=== PATIENT | male | born 2000 ===

== ENCOUNTER 2023-11-04 02:17 | Emergency (ER) | payer OTHER, SELFPAY ==
[2023-11-04 02:45] VITALS: BP 125/77; PULSE 60; RESP 16; TEMP 36.5; O2SAT 98; BMI 24.8
--- OUTSIDE RECORDS SUMMARY | 2023-11-04 03:01 | XMS_ITS | Continuity of Care Document ---
Author Organization [facility] Address [address] [place] [address]- Care Team Providers Care Auto Suspension And Steering Mechanic Name Role Phone Laure Vazquez MD Primary Care Physician [place] [facility] 04/27[place]20 - 05/04/20 [facility] [address] [place] [address]- [facility] Encounter Diagnosis Migraine(Discharge Diagnosis) - 04/27/20 Dizziness(Discharge Diagnosis) - 04/27/20 Attending Physician: Violette Adhikari MD Allergies, Adverse Reactions, Alerts Substance Reaction Severity Status Latex Active Immunizations Given and Recorded Vaccine Date Status Refusal Reason tetanus/diphtheria/pertussis, acel(Tdap) 1 07/24/19 Given Measles/Mumps/Rubella Virus Vaccine 08/08/17 Recor ded Hepatitis B Vaccine (old term) 08/08/17 Recorded 1Result Comment: [facility]# [id number] Medications ProAir HFA 90 mcg/inh inhalation aerosol with adapter 2, puffs, Inhalation, Every 4 hours, PRN, # 1 each, Refills 0, Tot. Refills 0, Maintenance, 06/30/19 14:56:25 EST, Aerosol, Route to Pharmacy Electronically, [id number], [facility]/pharmacy #[id number], 188, cm, 05/14/19 14:00:18 EDT, Height Start Date: 06/30/19 Stop Date: 07/30/19 Status: Ordered SUMAtriptan 25 mg oral tablet 1 tablet = 25 mg, By Mouth, Daily, PRN for migraine headache, may repeat dose after 2 hours up to amaximum of 2, # 9 tablet, 0 Refills, Acute 05/28/20 15:34:00 EST, 04/27/20 15:33:00 EDT, Tablet, [id number], 188, cm, 02/11/20 10:27:00 EDT, He... Start Date: 04/27/20 Stop Date: 05/28/20 Status: Ordered Problem List Condition Effective Dates Status Health Status Inform ant Hematuria(Confirmed) Active OCD (obsessive compulsive disorder)(Confirmed) Active Diagnosis Diagnosis Type Effective Dates Health Status Clini eder Service Informant Migraine Discharge Diagnosis 04/27/20 Dizziness Discharge Diagnosis 04/27/20 Social History Social History Type Response Smoking Status Never smoker; Tobacc o user in household: No entered on: 03/07/16 Sex
--- OUTSIDE RECORDS SUMMARY | 2023-11-04 03:01 | XMS_ITS | Continuity of Care Document ---
Author Organization [facility] Address [address] [place] [address]- Care Team Providers Care Outside Solar Sales Consultant Name Role Phone Cj Broderick MD Primary Care Physician [phone] Encounter [facility] Date(s): 02/25/23 - 03/28/23 [facility] [address] [place], [place] [address] Attending Physician: Cj Broderick MD Allergies, Adverse Reactions, Alerts Substance Reaction Severity Status Latex Active Immunizations Given and Recorded Vaccine Date Status Refusal Reason SARS-CoV-2 (COVID-19) mRNA BNT-162b2 vac 04/14/21 Recorded SARS-CoV-2 (COVID-19) mRNA BNT-162b2 vac 03/23/21 Recorded influenza virus vaccine, live 05/05/20 Recorded tetanus/diphtheria/pertussis, acel(Tdap) 1 07/24/19 Given Measles/Mumps/Rubella Virus Vaccine 08/08/17 Recor ded Hepatitis B Vaccine (old term) 08/08/17 Recorded 1Result Comment: [facility]# [id number] Medications SUMAtriptan 25 mg oral tablet 1 tablet = 25 mg, By Mouth, Once, # 9 tablet, 0 Refills, Soft Stop, 08/10/21 16:48:00 EST, Partial fill upon patient request if the prescription is for a schedule II opioid drug. Start Date: 08/10/21 Status: Ordered Ventolin HFA 108 mcg/inh inhalation aerosol with adapter 2 puffs, Inhalation, Every 4 hours, PRN for wheezing, # 18 Gm, 1 Refills, Maintenance, 06/05/22 23:15:00 EST, Aerosol, [id number], Partial fill upon patient request if the prescription is fora schedule II opioid drug., 180, cm, 05/07/22 16:00... Start Date: 06/05/22 Status: Ordered Problem List Condition Confirmation Course Effective Dates Status Health St atus Informant Asthma Confirmed Active Hematuria Confirmed Active Migraine Confirmed Active OCD (obsessive compulsive disorder) Confirmed Active Social History Social History Type Response Smoking Status Never smoker; Tobacc o user in household: No entered on: 03/07/16 Sex Patient Care team information Care Team Personnel Name: Cj Broderick MD Position: [facility] Physician - Primary Care Member Role: PCP Address: Address: [address] [place] [address] Adult & [place] [address]- Care Team Related Persons Name: EBEN MCGEE Address: home [address] [place] [address] Name: JACQUELINE MCGEE Address: home [address] [place] [address] Name: MOI SANCHEZ Address: home [address] [facility] [address] [place] [address]
--- OUTSIDE RECORDS SUMMARY | 2023-11-04 03:01 | XMS_ITS | Continuity of Care Document ---
Author Organization [facility] Address [address] [place] [address]- Care Team Providers Care Environmental Health Safety Engineer Name Role Phone Cj Broderick MD Primary Care Physician [phone] Encounter [facility] Date(s): 08/10/21 - 09/09/21 [facility] [address] [place], [place] [address] Allergies, Adverse Reactions, Alerts Substance Reaction Severity Status Latex Active Immunizations Given and Recorded Vaccine Date Status Refusal Reason SARS-CoV-2 (COVID-19) mRNA BNT-162b2 vac 04/14/21 Recorded SARS-CoV-2 (COVID-19) mRNA BNT-162b2 vac 03/23/21 Recorded influenza virus vaccine, live 05/05/20 Recorded tetanus/diphtheria/pertussis, acel(Tdap) 1 07/24/19 Given Measles/Mumps/Rubella Virus Vaccine 08/08/17 Recor ded Hepatitis B Vaccine (old term) 08/08/17 Recorded 1Result Comment: [facility]# [id number] Medications SUMAtriptan 25 mg oral tablet 1 tablet = 25 mg, By Mouth, Once, # 9 tablet, 0 Refills, Soft Stop, 08/10/21 16:48:00 EST, Partial fill upon patient request if the prescription is for a schedule II opioid drug. Start Date: 08/10/21 Status: Ordered Problem List Condition Effective Dates Status Health Status Inform ant Asthma(Confirmed) Active Hematuria(Confirmed) Active Migraine(Confirmed) Active OCD (obsessive compulsive disorder)(Confirmed) Active Social History Social History Type Response Smoking Status Never smoker; Tobacc o user in household: No entered on: 03/07/16 Sex
--- OUTSIDE RECORDS SUMMARY | 2023-11-04 03:01 | XMS_ITS | Continuity of Care Document ---
Author Organization [facility] Address [address] [place] [address]- Care Team Providers Care Physician Neonatology Name Role Phone Davie CASILLAS, Cj Toledo Primary Care Physician Encounter [facility] Date(s): 05/16/23 - 06/15/23 [facility] [address] [place], [place] [address] Allergies, Adverse Reactions, Alerts Substance Reaction Severity Status Latex Active Immunizations Given and Recorded Vaccine Date Status Refusal Reason SARS-CoV-2 (COVID-19) mRNA BNT-162b2 vac 04/14/21 Recorded SARS-CoV-2 (COVID-19) mRNA BNT-162b2 vac 03/23/21 Recorded influenza virus vaccine, live 05/05/20 Recorded tetanus/diphtheria/pertussis, acel(Tdap) 1 07/24/19 Given Measles/Mumps/Rubella Virus Vaccine 08/08/17 Recor ded Hepatitis B Vaccine (old term) 08/08/17 Recorded 1Result Comment: [facility]# [id number] Medications SUMAtriptan 25 mg oral tablet 1 [...] Team Personnel Name: Cj Broderick MD Position: [facility] Physician - Primary Care Member Role: PCP Address: Address: [address] [place] [address] Adult & [place] [address]- Care Team Related Persons Name: EBEN MCGEE Address: home [address] [place] [address] Name: JACQUELINE MCGEE Address: home [address] [place] [address] Name: MOI SANCHEZ Address: home [address] [facility] [address] [place] [address]
--- OUTSIDE RECORDS SUMMARY | 2023-11-04 03:01 | XMS_ITS | Continuity of Care Document ---
Author Organization [facility] Address [address] [place] [address]- Care Team Providers Care Data Sme Name Role Phone Cj Broderick MD Primary Care Physician [place] [facility] [place] 05/15/22 - 06/14/22 [facility] [address] [place], [place] [address] Allergies, Adverse Reactions, Alerts Substance Reaction Severity Status Latex Active Immunizations Given and Recorded Vaccine Date Status Refusal Reason SARS-CoV-2 (COVID-19) mRNA BNT-162b2 vac 04/14/21 Recorded SARS-CoV-2 (COVID-19) mRNA BNT-162b2 vac 03/23/21 Recorded influenza virus vaccine, live 05/05/20 Recorded tetanus/diphtheria/pertussis, acel(Tdap) 1 07/24/19 Given Measles/Mumps/Rubella Virus Vaccine 08/08/17 Recor ded Hepatitis B Vaccine (old term) 08/08/17 Recorded 1Result Comment: [facility]# [id number] Medications SUMAtriptan 25 mg oral tablet 1 [...] Team Personnel Name: Cj Broderick MD Position: [facility] Primary Care Physician Member Role: PCP Address: Address: [address] [place] [address] Adult & Pediatric Medicine [address] Care Team Related Persons Name: EBEN MCGEE Address: home [address] [place] [address] Name: JACQUELINE MCGEE Address: home [address] [place] [address] Name: MOI SANCHEZ Address: home [address] [facility] [address] [place] [address]
--- OUTSIDE RECORDS SUMMARY | 2023-11-04 03:02 | XMS_ITS | Continuity of Care Document ---
Author Organization [facility] Address [address] [place] [address]- Care Team Providers Care Electric Mule Driver Name Role Phone George CASILLAS, Laure Primary Care Physician Encounter [facility] [place] Date(s): 07/23/19 - 07/30/[address] [address]- [facility] Attending Physician: Dev CASILLAS, Tarah Allergies, Adverse Reactions, Alerts Substance Reaction Severity Status Latex Active Immunizations Given and Recorded Vaccine Date Status Refusal Reason tetanus/diphtheria/pertussis, acel(Tdap) 1 07/24/19 Given 1Result Comment: [facility]# [id number] Medications ProAir HFA 90 mcg/inh inhalation aerosol with adapter 2, puffs, Inhalation, Every 4 hours, PRN, # 1 each, Refills 0, Tot. Refills 0, Maintenance, 06/30/19 14:56:25 EST, Aerosol, Route to Pharmacy Electronically, [id number], [facility]/pharmacy #[id number], 188, cm, 05/14/19 14:00:18 EDT, Height Start Date: 06/30/19 Stop Date: 07/30/19 Status: Ordered Problem List Condition Effective Dates Status Health Status Inform ant Hematuria(Confirmed) Active OCD (obsessive compulsive disorder)(Confirmed) Active Social History Social History Type Response Smoking Status Never smoker; Tobacc o user in household: No entered on: 03/07/16 Sex
--- OUTSIDE RECORDS SUMMARY | 2023-11-04 03:02 | XMS_ITS | Continuity of Care Document ---
Author Organization [facility] Address [address] [place] [address]- Care Team Providers Care Mechanical Manufacturing Technician Name Role Phone Laure Vazquez MD Primary Care Physician Encounter [facility] Date(s): 11/26/19 - 12/03/19 [facility] [address] [place] [address]- [facility] Encounter Diagnosis OCD (obsessive compulsive disorder)(Discharge Diagnosis) - 11/26/19 Hematuria(Discharge Diagnosis) - 11/26/19 Attending Physician: Laure Vazquez MD Allergies, Adverse Reactions, Alerts Substance Reaction Severity Status Latex Active Immunizations Given and Recorded Vaccine Date Status Refusal Reason tetanus/diphtheria/pertussis, acel(Tdap) 1 07/24/19 Given Measles/Mumps/Rubella Virus Vaccine 08/08/17 Recor ded Hepatitis B Vaccine (old term) 08/08/17 Recorded 1Result Comment: [facility]# [id number] Medications ProAir HFA 90 mcg/inh inhalation aerosol with adapter 2, puffs, Inhalation, Every 4 hours, PRN, # 1 each, Refills 0, Tot. Refills 0, Maintenance, 06/30/19 14:56:25 EST, Aerosol, Route to Pharmacy Electronically, [id number], [facility]/pharmacy #[id number], 188, cm, 05/14/19 14:00:18 EDT, Height Start Date: 06/30/19 Stop Date: 07/30/19 Status: Ordered Problem List Condition Effective Dates Status Health Status Inform ant Hematuria(Confirmed) Active OCD (obsessive compulsive disorder)(Confirmed) Active Diagnosis Diagnosis Type Effective Dates Health Status Clinical Service Informant OCD (obsessive compulsive disorder) Discharge Diagnosis 11/26/19 Hematuria Discharge Diagnosis 11/26/19 Social History Social History Type Response Smoking Status Never smoker; Tobacc o user in household: No entered on: 03/07/16 Sex
--- OUTSIDE RECORDS SUMMARY | 2023-11-04 03:02 | XMS_ITS | Continuity of Care Document ---
Author Organization [facility] Address [address] [place] [address]- Care Team Providers Care Want Ad Supervisor Name Role Phone Laure Vazquez MD Primary Care Physician Encounter [facility] Date(s): 09/23/20 - 10/28/20 [facility] [address] [place], [place] [address] Attending Physician: Evelyn Townsend MD Allergies, Adverse Reactions, Alerts Substance Reaction Severity Status Latex Active Immunizations Given and Recorded Vaccine Date Status Refusal Reason tetanus/diphtheria/pertussis, acel(Tdap) 1 07/24/19 Given Measles/Mumps/Rubella Virus Vaccine 08/08/17 Recor ded Hepatitis B Vaccine (old term) 08/08/17 Recorded 1Result Comment: [facility]# [id number] Medications magnesium oxide 400 mg oral tablet 1 tablet = 400 mg, By Mouth, Daily, for 30 days, preventatively for Migraine headaches, # 30 tablet, 6 Refills, Acute 05/25/21 14:21:00 EST, 10/27/20 14:21:00 EDT, [id number], Partial fill upon patient request if the prescription is for a jd... Start Date: 10/27/20 Stop Date: 05/25/21 Status: Ordered SUMAtriptan 50 mg oral tablet 1 tablet = 50 mg, By Mouth, Daily, PRN for migraine headache, may repeat dose after 2 hours up to amaximum of 2 tabs/ day . No more than 3 doses/week, # 9 tablet, 3 Refills, Acute 07/25/21 15:38:00 EST, 07/25/20 15:38:00 EST, Tablet, [facility]... Start Date: 07/25/20 Stop Date: 07/25/21 Status: Ordered Problem List Condition Effective Dates Status Health Status Inform ant Hematuria(Confirmed) Active OCD (obsessive compulsive disorder)(Confirmed) Active Social History Social History Type Response Smoking Status Never smoker; Tobacc o user in household: No entered on: 03/07/16 Sex
--- OUTSIDE RECORDS SUMMARY | 2023-11-04 03:02 | XMS_ITS | Continuity of Care Document ---
Author Organization [facility] Address [address] [place] [address]- Care Team Providers Care Services Manager Name Role Phone Davie CASILLAS, Cj Toledo Primary Care Physician Encounter [facility] Date(s): 02/25/23 - 03/27/23 [facility] [address] [place], [place] [address] Allergies, Adverse Reactions, Alerts Substance Reaction Severity Status Latex Active Immunizations Given and Recorded Vaccine Date Status Refusal Reason SARS-CoV-2 (COVID-19) mRNA BNT-162b2 vac 04/14/21 Recorded SARS-CoV-2 (COVID-19) mRNA BNT-162b2 vac 03/23/21 Recorded influenza virus vaccine, live 05/05/20 Recorded tetanus/diphtheria/pertussis, acel(Tdap) 1 07/24/19 Given Measles/Mumps/Rubella Virus Vaccine 08/08/17 Recor ded Hepatitis B Vaccine (old term) 08/08/17 Recorded 1Result Comment: [facility]# [id number] Medications SUMAtriptan 25 mg oral tablet 1 [...] Team Personnel Name: Cj Broderick MD Position: [facility] Physician - Primary Care Member Role: PCP Address: Address: [address] [place] [address] Adult & [place] [address]- Care Team Related Persons Name: EBEN MCGEE Address: home [address] [place] [address] Name: JACQUELINE MCGEE Address: home [address] [place] [address] Name: MOI SANCHEZ Address: home [address] [facility] [address] [place] [address]
--- OUTSIDE RECORDS SUMMARY | 2023-11-04 03:02 | XMS_ITS | Continuity of Care Document ---
Author Organization [facility] Address [address] [place] [address]- Care Team Providers Care Molder Meat Name Role Phone Davie CASILLAS, Cj Toledo Primary Care Physician [phone] Encounter [facility] Date(s): 01/01/23 - 01/31/[address] [address] Attending Physician: AdmReanna mathis Admitting Physician: Reanna Monsalve Referring Physician: AdmtrReanna Allergies, Adverse Reactions, Alerts Substance Reaction Severity Status Latex Active Immunizations Given and Recorded Vaccine Date Status Refusal Reason SARS-CoV-2 (COVID-19) mRNA BNT-162b2 vac 04/14/21 Recorded SARS-CoV-2 (COVID-19) mRNA BNT-162b2 vac 03/23/21 Recorded influenza virus vaccine, live 05/05/20 Recorded tetanus/diphtheria/pertussis, acel(Tdap) 1 07/24/19 Given Measles/Mumps/Rubella Virus Vaccine 08/08/17 Recor ded Hepatitis B Vaccine (old term) 08/08/17 Recorded 1Result Comment: [facility]# [id number] Medications SUMAtriptan 25 mg oral tablet 1 [...] Team Personnel Name: Cj Broderick MD Position: S Physician - Primary Care Member Role: PCP Address: Address: [address] [place] [address] Adult & [place] [address]- Care Team Related Persons Name: EBEN MCGEE Address: home [address] [place] [address] Name: JACQUELINE MCGEE Address: home [address] [place] [address] Name: MOI SANCHEZ Address: home [address] [facility] [address] [place] [address]
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
--- OUTSIDE RECORDS SUMMARY | 2023-11-04 03:02 | XMS_ITS | Continuity of Care Document ---
Author Organization [facility] Address [address] [place] [address]- Care Team Providers Care Powdered Metal Supervisor Name Role Phone Cj Broderick MD Primary Care Physician En[place] [facility] Date(s): 04/03/23 - 04/10/23 [facility] [address] [place], [place] [address] Attending Physician: Cj Broderick MD Allergies, Adverse [...] Vaccine (old term) 08/08/17 Recorded 1Result Comment: [facility]# [id number] Medications SUMAtriptan 25 mg oral tablet 1 [...] Active OCD (obsessive compulsive disorder) Confirmed Active Vital Signs Most recent to oldest [Reference Range]: 1 Height 180 cm (04/03/23 12:10 PM) Weight 85.5 kg (04/03/23 12:10 PM) Oxygen Saturation [94-100 %] 98 % (04/03/23 12:10 PM) Pulse Rate [55-90 bpm] 68 bpm (04/03/23 12:10 PM) Body Mass Index [18.5-24.99 kg/m2] 26.39 kg/m2 *H* (04/03/23 12:10 PM) Blood Pressure [90-138/55-84 mm Hg] 112/ 67mm Hg (04/03/23 12:10 PM) Mode of Delivery (Oxygen) Room air (04/03/23 12:10 PM) Blood pressure sites Arm, left (04/03/23 12:10 PM) Weight Obtained Via Standing scale (04/03/23 12:10 PM) Social History Social History Type Response Smoking Status Never smoker; Tobacc o user in household: No entered on: 03/07/16 Sex Patient Care team information Care Team Personnel Name: Cj Broderick MD Position: S Physician - Primary Care Member Role: PCP Address: Address: [address] [place] [address] Adult & Pediatric Medicine [email or web address] Care Team Related Persons Name: EBEN MCGEE Address: home [address] [place] [address] Name: JACQUELINE MCGEE Address: home [address] [place] [address] Name: MOI SANCHEZ Address: home [address] [facility] [address] [place] [address]
--- OUTSIDE RECORDS SUMMARY | 2023-11-04 03:02 | XMS_ITS | Continuity of Care Document ---
Author Organization [facility] Address [address] [place] [address]- Care Team Providers Care Engine Cowling Installer Name Role Phone Laure Vazquez MD Primary Care Physician Encounter [facility] Date(s): 11/26/19 - 12/26/19 [facility] [address] [place] [address]- [facility] Attending Physician: AdmReanna mathis Admitting Physician: AdmtrReanna Referring Physician: Admtr, Ar8 Allergies, Adverse Reactions, Alerts Substance Reaction Severity Status Latex Active Immunizations Given and Recorded Vaccine Date Status Refusal Reason tetanus/diphtheria/pertussis, acel(Tdap) 1 07/24/19 Given Measles/Mumps/Rubella Virus Vaccine 08/08/17 Recor ded Hepatitis B Vaccine (old term) 08/08/17 Recorded 1Result Comment: [facility]# [id number] Medications ProAir HFA 90 mcg/inh inhalation aerosol with adapter 2, puffs, Inhalation, Every 4 hours, PRN, # 1 each, Refills 0, Tot. Refills 0, Maintenance, 06/30/19 14:56:25 EST, Aerosol, Route to Pharmacy Electronically, [id number], [facility][id number], 188, cm, 05/14/19 14:00:18 EDT, Height Start Date: 06/30/19 Stop Date: 07/30/19 Status: Ordered Problem List Condition Effective Dates Status Health Status Inform ant Hematuria(Confirmed) Active OCD (obsessive compulsive disorder)(Confirmed) Active Social History Social History Type Response Smoking Status Never smoker; Tobacc o user in household: No entered on: 03/07/16 Sex
--- OUTSIDE RECORDS SUMMARY | 2023-11-04 03:02 | XMS_ITS | Continuity of Care Document ---
Author Organization [facility] Address [address] [place] [address]- Care Team Providers Care Grain Combine Driver Name Role Phone Cj Broderick MD Primary Care Physician [phone] Encounter [facility] Date(s): 09/02/23 - 09/09/23 [facility] [address] [place], [place] [address] Attending Physician: Cj Broderick MD [...] 1Result Comment: [facility]# [id number] Medications SUMAtriptan 25 mg oral tablet 1 tablet = 25 mg, By Mouth, Once, # 9 tablet, 0 Refills, Soft Stop, 09/02/23 11:59:00 EST, [facility]/pharmacy #[id number], Partial fill upon patient request if the prescription is for a schedule II opioid drug.,180, cm, 09/02/23 11:21:00 EST, Height Start Date: 09/02/23 Status: Ordered Ventolin HFA 108 mcg/inh inhalation [...] oldest [Reference Range]: 1 Height 180 cm (09/02/23 11:21 AM) Weight 80.1 kg (09/02/23 11:21 AM) Oxygen Saturation [94-100 %] 99 % (09/02/23 11:21 AM) Pulse Rate [55-90 bpm] 69 bpm (09/02/23 11:21 AM) Body Mass Index [18.5-24.99 kg/m2] 24.72 kg/m2 (09/02/23 11:21 AM) Blood Pressure [90-138/55-84 mm Hg] 144/ 84mm Hg *H* (09/02/23 11:21 AM) Mode of Delivery (Oxygen) Room air (09/02/23 11:21 AM) Blood pressure sites Arm, left (09/02/23 11:21 AM) Social History Social History Type Response Smoking Status Never smoker; Tobacc o user in household: No entered on: 03/07/16 Sex Note * Cardinal , Mellisa: PERFORM, SIGN, VERIFY Event Display: Patient Education/Instruction Authored Date: [id number] [facility] *No Edge Adult Ped Clinical Summary Name RAEANN WISDOM Age 23 Years 2000 PCP Davie CASILLAS, Cj Toledo PCP Visit Date 09/02/2023 11:05:00 Additional Instructions: Scheduled Appointments?? Future Appointments ?No Future Appointments Scheduled Follow-Up Instructions ?? With: Address: When: Fernando Calzada MD [facility], [address], [facility], [place] [id number] [facility] (1) Comments: [id number] Diagnosis Unspecified asthma, uncomplicated; Hematuria, unspecified; Encounter for general adult medical examination without abnormal findings; Unspecified cataract Medications: Please continue your medications until treatment is completed or stopped by your provider. Discuss any questions related to medications with your provider. Medications to Continue with No Changes [id number], [address] [place], [place] [id number], [phone] Sumatriptan (SUMAtriptan 25 mg oral tablet) 1 tab(s) Oral once. Refills: 0. Next Dose: These medications were not printed or sent to your pharmacy Albuterol (Ventolin HFA 108 mcg/inh inhalation aerosol with adapter) 2 puff(s) Inhalation every 4 hours as needed for wheezing. Refills: 1. Next Dose: Allergy Info:?? Latex Medications Given This Visit Future Orders ?Lipid Panel? Order Date:09/02/23?- Complete by?09/02/23 ?Syphilis Testing formerly ordered as RPR? Order Date:09/02/23?- Complete by?09/02/23 ?HIV Ab-Ag 4th Generation? Order Date:09/02/23?- Complete by?09/02/23 ?Chlamydia/N. Gonorrhoeae TMA (NAAT)? Order Date:09/02/23?- Complete by?09/02/23 ?Glucose Level? Order Date:09/02/23?- Complete on or after?09/02/23 Vital Signs Height 180 cm Weight 80.1 kg BMI 24.72 kg/m2 Blood Pressure 144 mm Hg/84 mm Hg Temperature Pulse Rate 69 bpm Respiratory Rate 02 Sat Mode of Delivery 99 %/Room air You can now view a summary of your hospital visit from the comfort of your home through a free online portal called [employer]. [employer] is a website that allows you to securely view your medical information including discharge summary, medications and follow-up visits. ??You can alsosend a secure electronic message to your doctor???s office to request appointments, renew medications or just ask a question. You can enroll at [email or web address] or register during your next office visit. Disclaimer:?? The information provided is of a general nature and is intended to be used in conjunction with the recommendations and advice of your health care practitioner. ??Every effort has been made to ensure that the information provided is accurate and complete at the time it is provided to you however, as your needs change, or, as new ??information becomes available, different or additional instructions may be required. If you have questions, please consult with your primary care provider or pharmacist, as appropriate. ??This information is not intended to serve as substitution for assessment and evaluation by a qualified health care provider. If you do not have a primary care provider, you may find a [facility] provider by calling [facility] [employer] Link at [phone]. [facility], in keeping with [facility] guidance, no longer requires face masks for staff, patientsor visitors in most situations. Similar to time spent indoors at other locations, there is the chance that you were exposed to respiratory viruses during your time with us (such as flu or COVID-19).? If you develop symptoms concerning for a viral respiratory infection, please seek testing (and treatment if indicated) from your medical provider or home test kit. For information about the plan of care including goals and instructions for your diagnosis, please see the patient education orders section of this document. Patient Education Materials?? The content of this educational material or handout may have been modified, supplemented, or adapted from its original content and format to support your individualized medical care. Patient Care team information Care Team Personnel Name: Cj Broderick MD Position: S Physician - Primary Care Member Role: PCP Address: Address: [address] [place] [address] Adult [place] [address]- Care Team Related Persons Name: EBEN MCGEE Address: home [address] [place] [address] Name: JACQUELINE MCGEE Address: home [address] [place] [address] Name: MOI SANCHEZ Address: home [address] [facility] [address] [place] [address]
--- OUTSIDE RECORDS SUMMARY | 2023-11-04 03:02 | XMS_ITS | Continuity of Care Document ---
Author Organization [facility] Address Unknown Care Team Providers Care Cable Repairer Name Role Phone Cj Broderick MD Primary Care Physician Encounter [facility] Date(s): 01/10/21 - 05/10/21 [facility] Attending Physician: Quynh Fink MD Admitting Physician: Quynh Fink MD Allergies, Adverse Reactions, Alerts Substance Reaction Severity Status Latex Active Immunizations Given and Recorded Vaccine Date Status Refusal Reason influenza virus vaccine, live 05/05/20 Recorded tetanus/diphtheria/pertussis, acel(Tdap) 1 07/24/19 Given Measles/Mumps/Rubella Virus Vaccine 08/08/17 Recor ded Hepatitis B Vaccine (old term) 08/08/17 Recorded 1Result Comment: [facility]# [id number] Medications magnesium oxide 400 mg oral tablet [...]
--- OUTSIDE RECORDS SUMMARY | 2023-11-04 03:02 | XMS_ITS | Continuity of Care Document ---
Author Organization [facility] Address [address] [place] [address]- Care Team Providers Care Material Requirements Planning Manager Name Role Phone Cj Broderick MD Primary Care Physician [place] [facility] [place] 05/07/22 - 05/14/22 [facility] [address] [place], [place] [address] Attending Physician: Cj Broderick MD Allergies, Adverse [...] Vaccine (old term) 08/08/17 Recorded 1Result Comment: [facility]# [id number] Medications SUMAtriptan 25 mg oral tablet 1 tablet = 25 mg, By Mouth, Once, # 9 tablet, 0 Refills, Soft Stop, 08/10/21 16:48:00 EST, Partial fill upon patient request if the prescription is for a schedule II opioid drug. Start Date: 08/10/21 Status: Ordered Problem List Condition Confirmation Course Effective Dates Status Health St atus Informant Asthma Confirmed Active Hematuria Confirmed Active Migraine Confirmed Active OCD (obsessive compulsive disorder) Confirmed Active Vital Signs Most recent to oldest [Reference Range]: 1 Height 180 cm (05/07/22 4:00 PM) Weight 82 kg (05/07/22 4:00 PM) Oxygen Saturation [94-100 %] 97 % (05/07/22 4:00 PM) Pulse Rate [55-90 bpm] 64 bpm (05/07/22 4:00 PM) Body Mass Index [18.5-24.99 kg/m2] 25.31 kg/m2 *H* (05/07/22 4:00 PM) Blood Pressure [90-138/55-84 mm Hg] 120/ 70mm Hg (05/07/22 4:00 PM) Mode of Delivery (Oxygen) Room air (05/07/22 4:00 PM) Blood pressure sites Arm, left (05/07/22 4:00 PM) Social History Social History Type Response Smoking Status Never smoker; Tobacc o user in household: No entered on: 03/07/16 Sex Patient Care team information Personnel Name: Cj Broderick MD Address: Address: [address] [place] [address] Adult & Pediatric Medicine [place], [place] [address]
--- OUTSIDE RECORDS SUMMARY | 2023-11-04 03:02 | XMS_ITS | Continuity of Care Document ---
Author Organization [facility] Address Unknown Care Team Providers Care Transplant Rn Name Role Phone Cj Broderick MD Primary Care Physician [phone] [place] [facility] [place](s[place] 04/10/21 - 05/10/21 [facility] Attending Physician: Reanna Monsalve Admitting Physician: Reanna Monsalve Referring Physician: Reanna Monsalve Allergies, Adverse Reactions, Alerts Substance Reaction Severity Status Latex Active Immunizations Given and Recorded Vaccine Date Status Refusal Reason influenza virus vaccine, live 05/05/20 Recorded tetanus/diphtheria/pertussis, acel(Tdap) 1 07/24/19 Given Measles/Mumps/Rubella Virus Vaccine 08/08/17 Recor ded Hepatitis B Vaccine (old term) 08/08/17 Recorded 1Result Comment: [facility]# [id number] Medications magnesium oxide 400 mg oral tablet [...]
--- OUTSIDE RECORDS SUMMARY | 2023-11-04 03:02 | XMS_ITS | Continuity of Care Document ---
Author Organization [facility] Address [address] [place] [address]- Care Team Providers Care Mechanical Tech Name Role Phone Cj Broderick MD Primary Care Physician [phone] Encounter [facility] Date(s): 12/05/22 - 01/17/23 [facility] [address] [place], [place] [address] Attending Physician: [...] Vaccine (old term) 08/08/17 Recorded 1Result Comment: [facility]# [id number] Medications SUMAtriptan 25 mg oral tablet 1 [...] Team Personnel Name: Cj Broderick MD Position: [facility] Physician - Primary Care Member Role: PCP Address: Address: [address] [place] [address] Adult & [place] [address]- Care Team Related Persons Name: EBEN MCGEE Address: home [address] [place] [address] Name: JACQUELINE MCGEE Address: home [address] [place] [address] Name: MOI SANCHEZ Address: home [address] [facility] [address] [place] [address]
--- OUTSIDE RECORDS SUMMARY | 2023-11-04 03:02 | XMS_ITS | Continuity of Care Document ---
Author Organization [facility] Address [address] [place] [address]- Care Team Providers Care Service Writer Advisor Name Role Phone Cj Broderick MD Primary Care Physician [place] [facility] [place] Date(s): 10/05/22 - 11/04/22 [facility] [address] [place], [place] [address] Attending Physician: AdmReanna mathis Admitting Physician: AdmtrReanna [...] (old term) 08/08/17 Recorded 1Result Comment: [facility]# [id number] Medications SUMAtriptan 25 mg oral tablet 1 [...] No entered on: 03/07/16 Sex Note * Event Display: X-Ray Hand/Wrist, Non- Authored Date: Patient Care team information Care Team Personnel Name: Cj Broderick MD Position: [facility] Primary Care Physician Member Role: PCP Address: Address: [address] [place] [address] Adult & Pediatric Medicine [address] Care Team Related Persons Name: EBEN MCGEE Address: home [address] [place] [address] Name: JACQUELINE MCGEE Address: home [address] [place] [address] Name: MOI SANCHEZ Address: home [address] [facility] [address] [place] [address]
--- OUTSIDE RECORDS SUMMARY | 2023-11-04 03:02 | XMS_ITS | Continuity of Care Document ---
Author Organization [facility] Address [address] [place] [address]- Care Team Providers Care Decorating Instructor Name Role Phone Laure Vazquez MD Primary Care Physician Encounter [facility] Date(s): 10/07/20 - 10/14/20 [facility] [address] [place], [place] [address] Attending Physician: Evelyn Townsend MD Allergies, Adverse Reactions, Alerts Substance Reaction Severity Status Latex Active Immunizations Given and Recorded Vaccine Date Status Refusal Reason tetanus/diphtheria/pertussis, acel(Tdap) 1 07/24/19 Given Measles/Mumps/Rubella Virus Vaccine 08/08/17 Recor ded Hepatitis B Vaccine (old term) 08/08/17 Recorded 1Result Comment: [facility]# [id number] Medications ProAir HFA 90 mcg/inh inhalation aerosol with adapter 2, puffs, Inhalation, Every 4 hours, PRN, # 1 each, Refills 0, Tot. Refills 0, Maintenance, 06/30/19 14:56:25 EST, Aerosol, Route to Pharmacy Electronically, [id number], [id number], 188, cm, 05/14/19 14:00:18 EDT, Height Start Date: 06/30/19 Stop Date: 07/30/19 Status: Ordered SUMAtriptan 50 mg oral tablet [...]
--- OUTSIDE RECORDS SUMMARY | 2023-11-04 03:02 | XMS_ITS | Continuity of Care Document ---
Author Organization [facility] Address [address] [place] [address]- Care Team Providers Care Replanting Machine Operator Name Role Phone Cj Broderick MD Primary Care Physician [phone] En[place] [facility] [place] Date(s): 10/05/22 - 10/12/22 [facility] [address] [place], [place] [address] Attending Physician: Cj Broderick [...] (old term) 08/08/17 Recorded 1Result Comment: [facility]# [id number] Medications SUMAtriptan 25 mg oral tablet 1 [...] oldest [Reference Range]: 1 Height 180 cm (10/05/22 8:58 AM) Weight 82.8 kg (10/05/22 8:58 AM) Oxygen Saturation [94-100 %] 99 % (10/05/22 8:58 AM) Pulse Rate [55-90 bpm] 74 bpm (10/05/22 8:58 AM) Body Mass Index [18.5-24.99 kg/m2] 25.56 kg/m2 *H* (10/05/22 8:58 AM) Blood Pressure [90-138/55-84 mm Hg] 120/ 80mm Hg (10/05/22 8:58 AM) Mode of Delivery (Oxygen) Room air (10/05/22 8:58 AM) Blood pressure sites Arm, left (10/05/22 8:58 AM) Social History Social History Type Response Smoking Status Never smoker; Tobacc o user in household: No entered on: 03/07/16 Sex Note * Sarah Castro: PERFORM, SIGN, VERIFY Event Display: Patient Education/Instruction Authored Date: [id number] [facility] *No Edge Adult Ped Clinical Summary Name RAEANN WISDOM Age 22 Years 2000 PCP Cj Broderick MD PCP Visit Date 10/05/2022 08:40:00 Additional Instructions: Scheduled Appointments?? Future Appointments ?*[facility] [address],??[place],??[address] ?Phone:??--?Fax:??-- ?Appt. Date:??10/15/2022?4:00 PM ?Scheduled Provider:??HARIS Isabel Jodi M Follow-Up Instructions ?? Diagnosis Medications: Please continue your medications until treatment is completed or stopped by your provider. Discuss any questions related to medications with your provider. Medications to Continue with No Changes These medications were not printed or sent to your pharmacy Albuterol (Ventolin HFA 108 mcg/inh inhalation aerosol with adapter) 2 puff(s) Inhalation every 4 hours as needed for wheezing. Refills: 1. Next Dose: Sumatriptan (SUMAtriptan 25 mg oral tablet) 1 tab(s) Oral once. Refills: 0. Next Dose: Allergy Info:?? Latex Medications Given This Visit Future Orders ?No future orders Vital Signs Height 180 cm Weight 82.8 kg BMI 25.56 kg/m2 Blood Pressure 120 mm Hg/80 mm Hg Temperature Pulse Rate 74 bpm Respiratory Rate 02 Sat Mode of Delivery 99 %/Room air You can now view a summary of your hospital visit from the comfort of your home through a free online portal called [employer]. [employer] is a website that allows you to securely view your medical information including discharge summary, medications and follow-up visits. ??You can alsosend a secure electronic message to your doctor???s office to request appointments, renew medications or just ask a question. You can enroll at [email or web address] or register during your next office visit. [...] primary care provider, you may find a [facility] provider by calling [facility] [employer] Link at [phone]. For information about the plan of care [...] Team Personnel Name: Cj Broderick MD Position: [facility] Primary Care Physician Member Role: PCP Address: Address: [address] [place] [address] Adult & [place] [address]- Care Team Related Persons Name: EBEN MCGEE Address: home [address] [place] [address] Name: JACQUELINE MCGEE Address: home [address] [place] [address] Name: MOI SANCHEZ Address: home [address] [facility] [address] [place] [address]
--- OUTSIDE RECORDS SUMMARY | 2023-11-04 03:02 | XMS_ITS | Continuity of Care Document ---
Author Organization [facility] Address [address] [place] [address]- Care Team Providers Care Sort Line Name Role Phone Cj Broderick MD Primary Care Physician [phone] [place] [facility] [place] 08/10/21 - 09/09/21 [facility] [address] [place], [place] [address] Attending Physician: Reanna Monsalve Admitting Physician: AdmReanna mathis Referring Physician: Admtr ArMarkus Allergies, Adverse Reactions, Alerts Substance Reaction Severity Status Latex Active Immunizations Given and Recorded Vaccine Date Status Refusal Reason SARS-CoV-2 (COVID-19) mRNA BNT-162b2 vac 04/14/21 Recorded SARS-CoV-2 (COVID-19) mRNA BNT-162b2 vac 03/23/21 Recorded influenza virus vaccine, live 05/05/20 Recorded tetanus/diphtheria/pertussis, acel(Tdap) 1 07/24/19 Given Measles/Mumps/Rubella Virus Vaccine 08/08/17 Recor ded Hepatitis B Vaccine (old term) 08/08/17 Recorded 1Result Comment: [facility]# [id number] Medications SUMAtriptan 25 mg oral tablet 1 [...]
--- OUTSIDE RECORDS SUMMARY | 2023-11-04 03:02 | XMS_ITS | Continuity of Care Document ---
Author Organization [facility] Address [address] [place] [address]- Care Team Providers Care Men'S Swim Coach Name Role Phone Laure Vazquez MD Primary Care Physician [place] [facility] Date(s): 07/24/19 - 07/31/19 [facility] [address] [place] [address] Attending Physician: Laure Vazquez MD Allergies, Adverse Reactions, Alerts Substance Reaction Severity Status Latex Active Immunizations Given and Recorded Vaccine Date Status Refusal Reason tetanus/diphtheria/pertussis, acel(Tdap) 1 07/24/19 Given 1Result Comment: [facility]# [id number] Medications ProAir HFA 90 mcg/inh inhalation aerosol with adapter 2, puffs, Inhalation, Every 4 hours, PRN, # 1 each, Refills 0, Tot. Refills 0, Maintenance, 06/30/19 14:56:25 EST, Aerosol, Route to Pharmacy Electronically, [id number], [facility]pharmacy #[id number], 188, cm, 05/14/19 14:00:18 EDT, Height Start Date: 06/30/19 Stop Date: 07/30/19 Status: Ordered Problem List Condition Effective Dates Status Health Status Inform ant Hematuria(Confirmed) Active OCD (obsessive compulsive disorder)(Confirmed) Active Vital Signs Most recent to oldest [Reference Range]: 1 Height 188 cm (07/24/19 2:10 PM) Weight 75 kg (07/24/19 2:10 PM) Oxygen Saturation [94-100 %] 99 % (07/24/19 2:10 PM) Pulse Rate [55-90 bpm] 68 bpm (07/24/19 2:10 PM) Body Mass Index [18.5-24.99] 21.22 (07/24/19 2:10 PM) Blood Pressure [90-138/55-84 mm Hg] 120/ 68mm Hg (07/24/19 2:10 PM) Social History Social History Type Response Smoking Status Never smoker; Tobacc o user in household: No entered on: 03/07/16 Sex
--- OUTSIDE RECORDS SUMMARY | 2023-11-04 03:02 | XMS_ITS | Continuity of Care Document ---
Author Organization [facility] Address [address] [place] [address]- Care Team Providers Care Coach Operator Name Role Phone Davie CASILLAS, Cj Toledo Primary Care Physician [phone] Encounter [facility] Date(s): 06/04/23 - 07/04/23 [facility] [address] [place], [place] [email or web address] Allergies, Adverse Reactions, Alerts Substance Reaction Severity Status Latex Active Immunizations Given and Recorded Vaccine Date Status Refusal Reason SARS-CoV-2 (COVID-19) mRNA BNT-162b2 vac 04/14/21 Recorded SARS-CoV-2 (COVID-19) mRNA BNT-162b2 vac 03/23/21 Recorded influenza virus vaccine, live 05/05/20 Recorded tetanus/diphtheria/pertussis, acel(Tdap) 1 07/24/19 Given Measles/Mumps/Rubella Virus Vaccine 08/08/17 Recor ded Hepatitis B Vaccine (old term) 08/08/17 Recorded 1Result Comment: [facility]# [id number] Medications SUMAtriptan 25 mg oral tablet 1 [...] Team Personnel Name: Cj Broderick MD Position: [facility] Physician - Primary Care Member Role: PCP Address: Address: [address] [place] [address] Adult & [place] [address]- Care Team Related Persons Name: EBEN MCGEE Address: home [address] [place] [address] Name: JACQUELINE MCGEE Address: home [address] [place] [address] Name: MOI SANCHEZ Address: home [address] [facility] [address] [place] [address]
--- OUTSIDE RECORDS SUMMARY | 2023-11-04 03:02 | XMS_ITS | Continuity of Care Document ---
Author Organization [facility] Address [address] [place] [address]- Care Team Providers Care Mold Blower Name Role Phone Cj Broderick MD Primary Care Physician [place] [facility] [place]11/22 [facility] [address] [place], [place] [address] Attending [...] Vaccine (old term) 08/08/17 Recorded 1Result Comment: [facility]# [id number] Medications SUMAtriptan 25 mg oral tablet 1 [...] oldest [Reference Range]: 1 Height 180 cm (12/04/22 11:16 AM) Social History Social History Type Response Smoking Status Never smoker; Tobacc o user in household: No entered on: 03/07/16 Sex Patient Care team information Care Team Personnel Name: Cj Broderick MD Position: [facility] Physician - Primary Care Member Role: PCP Address: Address: [address] [place] [address] Adult [place] [address]- Care Team Related Persons Name: EBEN MCGEE Address: home [address] [place] [address] Name: JACQUELINE MCGEE Address: home [address] [place] [address] Name: MOI SANCHEZ Address: home [address] [facility] [address] [place] [address]
--- OUTSIDE RECORDS SUMMARY | 2023-11-04 03:02 | XMS_ITS | Continuity of Care Document ---
Author Organization [facility] Address [address] [place] [address]- Care Team Providers Care It Business Systems Analyst Name Role Phone Cj Broderick MD Primary Care Physician [phone] Encounter [facility] [place] Date(s): 08/10/21 - 08/17/21 [facility] [address] [place], [place] [address] Attending Physician: Cj Broderick MD Allergies, [...] Recorded 1Result Comment: [facility]# [id number] Medications SUMAtriptan 25 mg oral tablet 1 [...] Migraine(Confirmed) Active OCD (obsessive compulsive disorder)(Confirmed) Active Vital Signs Most recent to oldest [Reference Range]: 1 Height 181.5 cm (08/10/21 4:06 PM) Weight 79.0 kg (08/10/21 4:06 PM) Oxygen Saturation [94-100 %] 99 % (08/10/21 4:06 PM) Pulse Rate [55-90 bpm] 93 bpm *H* (08/10/21 4:06 PM) Body Mass Index [18.5-24.99] 23.98 (08/10/21 4:06 PM) Blood Pressure [90-138/55-84 mm Hg] 108/ 70mm Hg (08/10/21 4:06 PM) Temperature [96.8-100.4 DegF] 97.4 DegF (08/10/21 4:06 PM) Blood pressure sites Arm, left (08/10/21 4:06 PM) Temperature Route Core (08/10/21 4:06 PM) Social History Social History Type Response Smoking Status Never smoker; Tobacc o user in household: No entered on: 03/07/16 Sex
--- OUTSIDE RECORDS SUMMARY | 2023-11-04 03:02 | XMS_ITS | Continuity of Care Document ---
Author Organization [facility] Address [address] [place] [address]- Care Team Providers Care Wholesale Representative Name Role Phone Laure Vazquez MD Primary Care Physician Encounter [facility] Date(s): 09/23/20 - 10/23/20 [facility] [address] [place], [place] [address] Allergies, Adverse Reactions, Alerts Substance Reaction Severity Status Latex Active Immunizations Given and Recorded Vaccine Date Status Refusal Reason tetanus/diphtheria/pertussis, acel(Tdap) 1 07/24/19 Given Measles/Mumps/Rubella Virus Vaccine 08/08/17 Recor ded Hepatitis B Vaccine (old term) 08/08/17 Recorded 1Result Comment: [facility]# [id number] Medications ProAir HFA 90 mcg/inh inhalation aerosol with adapter 2, puffs, Inhalation, Every 4 hours, PRN, # 1 each, Refills 0, Tot. Refills 0, Maintenance, 06/30/19 14:56:25 EST, Aerosol, Route to Pharmacy Electronically, [id number], [id number], 188, cm, 05/14/19 14:00:18 EDT, [...]
--- OUTSIDE RECORDS SUMMARY | 2023-11-04 03:02 | XMS_ITS | Continuity of Care Document ---
Author Organization [facility] Address [address] [place] [address]- Care Team Providers Care Electric Stop Installer Name Role Phone Davie CASILLAS, Cj Toledo Primary Care Physician Encounter [facility] [place] Date(s[place] 12/18/22 - 01/17/23 [facility] [address] [place], [place] [address] Attending Physician: Admdelfina, Reanna Admitting Physician: AdmtrReanna Referring Physician: Admtr, Ar8 [...] Vaccine (old term) 08/08/17 Recorded 1Result Comment: [facility]# [id number] Medications SUMAtriptan 25 mg oral tablet 1 [...] in household: No entered on: 03/07/16 Sex Radiology * Event Display: X-Ray Hand/Wrist, Non- Authored Date: Patient Care team information Care Team Personnel Name: Cj Broderick MD Position: [facility] Physician - Primary Care Member Role: PCP Address: Address: [address] [place] [address] Adult & [place] [address]- Care Team Related Persons Name: EBEN MCGEE Address: home [address] [place] [address] Name: JACQUELINE MCGEE Address: home [address] [place] [address] Name: MOI SANCHEZ Address: home [address] [facility] [address] [place] [address]
--- OUTSIDE RECORDS SUMMARY | 2023-11-04 03:02 | XMS_ITS | Continuity of Care Document ---
Author Organization [facility] Address [address] [place] [address]- Care Team Providers Care Flower Stripper Name Role Phone Cj Broderick MD Primary Care Physician [phone] Encounter [facility] [place] Date(s): 03/09/21 - 03/16/21 [facility] [address] [place], [place] [address] Attending Physician: Cj Broderick MD Allergies, Adverse Reactions, Alerts Substance Reaction Severity Status Latex Active Immunizations Given and Recorded Vaccine Date Status Refusal Reason influenza virus vaccine, live 05/05/20 Recorded tetanus/diphtheria/pertussis, acel(Tdap) 1 07/24/19 Given Measles/Mumps/Rubella Virus Vaccine 08/08/17 Recor ded Hepatitis B Vaccine (old term) 08/08/17 Recorded 1Result Comment: [facility]# [id number] Medications magnesium oxide 400 mg oral tablet [...] oldest [Reference Range]: 1 Height 181.5 cm (03/09/21 8:34 AM) Weight 75 kg (03/09/21 8:34 AM) Oxygen Saturation [94-100 %] 97 % (03/09/21 8:34 AM) Pulse Rate [55-90 bpm] 72 bpm (03/09/21 8:34 AM) Body Mass Index [18.5-24.99] 22.77 (03/09/21 8:34 AM) Blood Pressure [90-138/55-84 mm Hg] 122/ 64mm Hg (03/09/21 8:34 AM) Respiratory Rate [16-30 br/min] 18 br/mi n (03/09/21 8:34 AM) Temperature [96.8-100.4 DegF] 98.6 DegF (03/09/21 8:34 AM) Mode of Delivery (Oxygen) Room air (03/09/21 8:34 AM) Blood pressure sites Arm, left (03/09/21 8:34 AM) Temperature Route Temporal (03/09/21 8:34 AM) Weight Obtained Via Standing scale (03/09/21 8:34 AM) Social History Social History Type Response Smoking Status Never smoker; Tobacc o user in household: No entered on: 03/07/16 Sex
--- OUTSIDE RECORDS SUMMARY | 2023-11-04 03:02 | XMS_ITS | Continuity of Care Document ---
Author Organization [facility] Address [address] [place] [address]- Care Team Providers Care Navy Diver Name Role Phone Davie CASILLAS, Cj Toledo Primary Care Physician [phone] Encounter [facility] Date(s): 05/23/23 - 06/22/23 [facility] [address] [place], [place] [address] Allergies, Adverse Reactions, Alerts Substance Reaction Severity Status Latex Active Immunizations Given and Recorded Vaccine Date Status Refusal Reason SARS-CoV-2 (COVID-19) mRNA BNT-162b2 vac 04/14/21 Recorded SARS-CoV-2 (COVID-19) mRNA BNT-162b2 vac 03/23/21 Recorded influenza virus vaccine, live 05/05/20 Recorded tetanus/diphtheria/pertussis, acel(Tdap) 1 07/24/19 Given Measles/Mumps/Rubella Virus Vaccine 08/08/17 Recor ded Hepatitis B Vaccine (old term) 08/08/17 Recorded 1Result Comment: [facility]# [id number] Medications SUMAtriptan 25 mg oral tablet 1 [...] Team Personnel Name: Cj Broderick MD Position: [facility] Physician - Primary Care Member Role: PCP Address: Address: [address] [place] [address] Adult & [place] [address]- Care Team Related Persons Name: EBEN MCGEE Address: home [address] [place] [address] Name: JACQUELINE MCGEE Address: home [address] [place] [address] Name: MOI SANCHEZ Address: home [address] [facility] [address] [place] [address]
--- OUTSIDE RECORDS SUMMARY | 2023-11-04 03:02 | XMS_ITS | Continuity of Care Document ---
Author Organization [facility] Address [address] [place] [address]- Care Team Providers Care Travel Pt Name Role Phone Laure Vazquez MD Primary Care Physician [place] [facility] [place] 02/11/20 - 03/12/20 [facility] [address] [place] [address]- [facility] Attending Physician: AdmReanna mathis Admitting Physician: AdmtrReanna Referring Physician: Admtr, Ar8 Allergies, Adverse Reactions, Alerts Substance Reaction Severity Status Latex Active Immunizations Given and Recorded Vaccine Date Status Refusal Reason tetanus/diphtheria/pertussis, acel(Tdap) 1 07/24/19 Given Measles/Mumps/Rubella Virus Vaccine 08/08/17 Recor ded Hepatitis B Vaccine (old term) 08/08/17 Recorded 1Result Comment: [facility]# [id number] Medications ProAir HFA 90 mcg/inh inhalation aerosol with adapter 2, puffs, Inhalation, Every 4 hours, PRN, # 1 each, Refills 0, Tot. Refills 0, Maintenance, 06/30/19 14:56:25 EST, Aerosol, Route to Pharmacy Electronically, [id number], [facility]/pharmacy #[id number], 188, cm, 05/14/19 14:00:18 EDT, Height Start Date: 06/30/19 Stop Date: 07/30/19 Status: Ordered Problem List Condition Effective Dates Status Health Status Inform ant Hematuria(Confirmed) Active OCD (obsessive compulsive disorder)(Confirmed) Active Social History Social History Type Response Smoking Status Never smoker; Tobacc o user in household: No entered on: 03/07/16 Sex
--- OUTSIDE RECORDS SUMMARY | 2023-11-04 03:02 | XMS_ITS | Continuity of Care Document ---
Author Organization [facility] Address [address] [place] [address]- Care Team Providers Care Bread Packer Name Role Phone Laure Vazquez MD Primary Care Physician [phone] Encounter [facility] Date(s): 02/04/20 - 03/05/20 [facility] [address] [place] [address]- [facility] Allergies, Adverse Reactions, Alerts Substance Reaction Severity Status Latex Active Immunizations Given and Recorded Vaccine Date Status Refusal Reason tetanus/diphtheria/pertussis, acel(Tdap) 1 07/24/19 Given Measles/Mumps/Rubella Virus Vaccine 08/08/17 Recor ded Hepatitis B Vaccine (old term) 08/08/17 Recorded 1Result Comment: [facility]# [id number] Medications ProAir HFA 90 mcg/inh inhalation aerosol with adapter 2, puffs, Inhalation, Every 4 hours, PRN, # 1 each, Refills 0, Tot. Refills 0, Maintenance, 06/30/19 14:56:25 EST, Aerosol, Route to Pharmacy Electronically, [id number], [facility]/pharmacy #[id number], 188, cm, 05/14/19 14:00:18 EDT, Height Start Date: 06/30/19 Stop Date: 07/30/19 Status: Ordered Problem List Condition Effective Dates Status Health Status Inform ant Hematuria(Confirmed) Active OCD (obsessive compulsive disorder)(Confirmed) Active Social History Social History Type Response Smoking Status Never smoker; Tobacc o user in household: No entered on: 03/07/16 Sex
--- OUTSIDE RECORDS SUMMARY | 2023-11-04 03:02 | XMS_ITS | Continuity of Care Document ---
Author Organization [facility] Address [address] [place] [address]- Care Team Providers Care Traction Power Engineer Name Role Phone Davie CASILLAS, Cj Toledo Primary Care Physician [place] [facility] [place] 07/05/23 - 08/04/23 [facility] [address] [place], [place] [address] Allergies, Adverse Reactions, Alerts Substance Reaction Severity Status Latex Active Immunizations Given and Recorded Vaccine Date Status Refusal Reason SARS-CoV-2 (COVID-19) mRNA BNT-162b2 vac 04/14/21 Recorded SARS-CoV-2 (COVID-19) mRNA BNT-162b2 vac 03/23/21 Recorded influenza virus vaccine, live 05/05/20 Recorded tetanus/diphtheria/pertussis, acel(Tdap) 1 07/24/19 Given Measles/Mumps/Rubella Virus Vaccine 08/08/17 Recor ded Hepatitis B Vaccine (old term) 08/08/17 Recorded 1Result Comment: [facility]# [id number] Medications SUMAtriptan 25 mg oral tablet 1 [...] Team Personnel Name: Cj Broderick MD Position: [facility] Physician - Primary Care Member Role: PCP Address: Address: [address] [place] [address] Adult & [place] [address]- Care Team Related Persons Name: EBEN MCGEE Address: home [address] [place] [address] Name: JACQUELINE MCGEE Address: home [address] [place] [address] Name: MOI SANCHEZ Address: home [address] [facility] [address] [place] [address]
--- OUTSIDE RECORDS SUMMARY | 2023-11-04 03:02 | XMS_ITS | Continuity of Care Document ---
Author Organization [facility] Address [address] [place] [address]- Care Team Providers Care Brick Offbearer Name Role Phone Laure Vazquez MD Primary Care Physician [phone] Encounter [facility] [place] Date(s): 08/22/19 - 12/20/19 [facility] [address] [place] [address]- [facility] Encounter Diagnosis OCD (obsessive compulsive disorder)(Discharge Diagnosis) - 11/20/19 Hematuria(Discharge Diagnosis) - 11/20/19 Asthma(Discharge Diagnosis) - 11/20/19 Attending Physician: Laure Vazquez MD Allergies, Adverse Reactions, Alerts Substance Reaction Severity Status Latex Active Immunizations Given and Recorded Vaccine Date Status Refusal Reason tetanus/diphtheria/pertussis, acel(Tdap) 1 07/24/19 Given Measles/Mumps/Rubella Virus Vaccine 08/08/17 Recor ded Hepatitis B Vaccine (old term) 08/08/17 Recorded 1Result Comment: [facility]# [id number] Medications ProAir HFA 90 mcg/inh inhalation aerosol with adapter 2, puffs, Inhalation, Every 4 hours, PRN, # 1 each, Refills 0, Tot. Refills 0, Maintenance, 06/30/19 14:56:25 EST, Aerosol, Route to Pharmacy Electronically, [id number], [facility]/pharmacy #[id number], 188, cm, 05/14/19 14:00:18 EDT, Height Start Date: 06/30/19 Stop Date: 07/30/19 Status: Ordered Problem List Condition Effective Dates Status Health Status Inform ant Hematuria(Confirmed) Active OCD (obsessive compulsive disorder)(Confirmed) Active Diagnosis Diagnosis Type Effective Dates Health Status Clinical Service Informant OCD (obsessive compulsive disorder) Discharge Diagnosis 11/20/19 Hematuria Discharge Diagnosis 11/20/19 Asthma Discharge Diagnosis 11/20/19 Social History Social History Type Response Smoking Status Never smoker; Tobacc o user in household: No entered on: 03/07/16 Sex
--- OUTSIDE RECORDS SUMMARY | 2023-11-04 03:02 | XMS_ITS | Continuity of Care Document ---
Author Organization [facility] Address [address] [place] [address]- Care Team Providers Care Chemical Equipment Repairer Name Role Phone Cj Broderick MD Primary Care Physician [place] [facility] [place] 04/03[place]23 - 04/10/23 [facility] [address] [place], [place] [address] Attending Physician: Cj Broderick MD [...] Vaccine (old term) 08/08/17 Recorded 1Result Comment: [facility]# [id number] Medications SUMAtriptan 25 mg oral tablet 1 [...] Primary Care Member Role: PCP Address: Address: [address] [place] [address] Adult & [place] [address]- Care Team Related Persons Name: EBEN MCGEE Address: home [address] [place] [address] Name: JACQUELINE MCGEE Address: home [address] [place] [address] Name: MOI SANCHEZ Address: home [address] [facility] [address] [place] [address]
--- OUTSIDE RECORDS SUMMARY | 2023-11-04 03:02 | XMS_ITS | Continuity of Care Document ---
Author Organization [facility] Address [address] [facility], [address] Floor, [address] [place] [address]- Care Team Providers Care Scouring Train Operator Name Role Phone Laure Vazquez MD Primary Care Physician [phone] Encounter [facility] [place] Date(s): 05/24/20 - 08/24/20 [facility] [address], [address], [address] [place] [address] Attending Physician: Holden Currie NP Admitting Physician: Holden Currie NP Referring Physician: Laure Vazquez MD Allergies, Adverse Reactions, Alerts Substance Reaction Severity Status Latex Active Immunizations Given and Recorded Vaccine Date Status Refusal Reason tetanus/diphtheria/pertussis, acel(Tdap) 1 07/24/19 Given Measles/Mumps/Rubella Virus Vaccine 08/08/17 Recor ded Hepatitis B Vaccine (old term) 08/08/17 Recorded 1Result Comment: [facility]# [id number] Medications ProAir HFA 90 mcg/inh inhalation aerosol with adapter 2, puffs, Inhalation, Every 4 hours, PRN, # 1 each, Refills 0, Tot. Refills 0, Maintenance, 06/30/19 14:56:25 EST, Aerosol, Route to Pharmacy Electronically, [id number], [facility]/pharmacy #[id number], 188, cm, 05/14/19 14:00:18 EDT, Height Start Date: 06/30/19 Stop Date: 07/30/19 Status: Ordered SUMAtriptan 25 mg oral tablet See Instructions, PLEASE SEE ATTACHED FOR DETAILED DIRECTIONS, # 9 tablet, 2 Refills, Soft Stop, [id number], 188, cm, 02/11/20 10:27:00 EDT, Height Start Date: 05/19/20 Status: Ordered SUMAtriptan 50 mg oral tablet [...]
--- OUTSIDE RECORDS SUMMARY | 2023-11-04 03:02 | XMS_ITS | Continuity of Care Document ---
Author Organization [facility] Address [address] [place] [address]- Care Team Providers Care Hazardous Waste Remover Name Role Phone Cj Broderick MD Primary Care Physician [phone] Encounter [facility] [place] Date(s): 03/24/21 - 04/23/21 [facility] [address] [place], [place] [address] Allergies, Adverse Reactions, Alerts Substance Reaction Severity Status Latex Active Immunizations Given and Recorded Vaccine Date Status Refusal Reason influenza virus vaccine, live 05/05/20 Recorded tetanus/diphtheria/pertussis, acel(Tdap) 1 07/24/19 Given Measles/Mumps/Rubella Virus Vaccine 08/08/17 Recor ded Hepatitis B Vaccine (old term) 08/08/17 Recorded 1Result Comment: [facility]# [id number] Medications magnesium oxide 400 mg oral tablet [...]
--- OUTSIDE RECORDS SUMMARY | 2023-11-04 03:02 | XMS_ITS | Continuity of Care Document ---
Author Organization [facility] Address [address] [place] [address]- Care Team Providers Care Lock Expert Name Role Phone Davie CASILLAS, Cj Toledo Primary Care Physician [place] [facility] [place] Date(s): 02/28/23 - 03/30/23 [facility] [address] [place], [place] [address] Allergies, Adverse Reactions, Alerts Substance Reaction Severity Status Latex Active Immunizations Given and Recorded Vaccine Date Status Refusal Reason SARS-CoV-2 (COVID-19) mRNA BNT-162b2 vac 04/14/21 Recorded SARS-CoV-2 (COVID-19) mRNA BNT-162b2 vac 03/23/21 Recorded influenza virus vaccine, live 05/05/20 Recorded tetanus/diphtheria/pertussis, acel(Tdap) 1 07/24/19 Given Measles/Mumps/Rubella Virus Vaccine 08/08/17 Recor ded Hepatitis B Vaccine (old term) 08/08/17 Recorded 1Result Comment: [facility]# [id number] Medications SUMAtriptan 25 mg oral tablet 1 [...] Team Personnel Name: Cj Broderick MD Position: [facility] Physician - Primary Care Member Role: PCP Address: Address: [address] [place] [address] Adult & [place] [address]- Care Team Related Persons Name: EBEN MCGEE Address: home [address] [place] [address] Name: JACQUELINE MCGEE Address: home [address] [place] [address] Name: MOI SANCHEZ Address: home [address] [facility] [address] [place] [address]
--- OUTSIDE RECORDS SUMMARY | 2023-11-04 03:02 | XMS_ITS | Continuity of Care Document ---
Author Organization [facility] ter Address [address] [place] [id number]- Care Team Providers Care Salon Coordinator Name Role Phone Laure Vazquez MD Primary Care Physician Encounter [facility] [place] Date(s): 07/05/19 - 07/05/[address] [address]- [facility] Encounter Diagnosis Acute URI(Final) - 07/05/19 Discharge Disposition: A-D/C Home Attending Physician: Carlos CASILLAS, Theresa Miller Admitting Physician: Theresa Gonzalez MD Referring Physician: Not on Staff, Referring MD Allergies, Adverse Reactions, Alerts Substance Reaction Severity Status Latex Active Medications predniSONE 20 mg oral tablet 2 tablet = 40 mg, By Mouth, Daily, for 4 days, # 8 tablet, 0 Refills, Acute 07/09/19 16:00:00 EST, 07/05/19 16:00:00 EST, Tablet, [id number], 188, cm, 05/14/19 14:00:00 EDT, Height Start Date: 07/05/19 Stop Date: 07/09/19 Status: Ordered ProAir HFA 90 mcg/inh inhalation aerosol with adapter 2, puffs, Inhalation, Every 4 hours, PRN, # 1 each, Refills 0, Tot. Refills 0, Maintenance, 06/30/19 14:56:25 EST, Aerosol, Route to Pharmacy Electronically, [id number], [id number], 188, cm, 05/14/19 14:00:18 EDT, Height Start Date: 06/30/19 Stop Date: 07/30/19 Status: Ordered Problem List Condition Effective Dates Status Health Status Inform ant Hematuria(Confirmed) Active OCD (obsessive compulsive disorder)(Confirmed) Active Results Radiology Reports * Exam Date Time Procedure Performing Provider Status 07/05/19 11:43 AM Chest 2 Views Frontal and Lat Zetavares , Brenna; Yani (Verified) Notes: (Chest 2 Views Frontal and Lat) Reason For Exam: Shortness of Breath, Fever;Other: RESULT: Chest 2 Views Frontal and Lat Chest 2 Views Frontal and Lat Indication: Shortness of breath. COMPARISON: None. FINDINGS: LINES AND TUBES: None. LUNGS AND PLEURA: Clear lungs. Normal pulmonary vascularity. No pleural effusion. No pneumothorax. HEART, MEDIASTINUM AND ARRON: Heart is normal in size. Normal mediastinal and hilar contour. BONES AND SOFT TISSUES: No acute abnormality. IMPRESSION: No acute abnormality. WSN: [id number] Dictated By: Taran Modi MD Dictated Date/Time: 07/05/19 2:43 pm Reviewed By: Taran Modi MD Signed By: Taran Modi MD Signed Date/Time: 07/05/19 2:43 pm Transcribed By: FABIAN Transcribed Date/Time: 07/05/19 2:42 pm Vital Signs Most recent to oldest [Reference Range]: 1 2 3 Weight 74.4 kg (07/05/19 11:23 AM) 74.4 kg (07/05/19 9:59 AM) 74.4 kg (07/05/19 9:35 AM) Oxygen Saturation [94-100 %] 100 % (07/05/19 2:57 PM) 100 % (07/05/19 11:23 AM) 98 % (07/05/19 9:35 AM) Pulse Rate [55-90 bpm] 106 bpm *H* (07/05/19 2:57 PM) 81 bpm (07/05/19 11:23 AM) 87 bpm (07/05/19 9:35 AM) Blood Pressure [90-138/55-84 mm Hg] 138/77mm Hg (07/05/19 2:57 PM) 124/70mm Hg (07/05/19 11:23 AM) 131/72mm Hg (07/05/19 9:35 AM) Respiratory Rate [16-30 br/min] 18 br/min (07/05/19 2:57 PM) 16 br/min (07/05/19 11:23 AM) 18 br/min (07/05/19 9:35 AM) Temperature [96.8-100.4 DegF] 97.9 DegF (07/05/19 11:23 AM) 98.1 DegF (07/05/19 9:35 AM) Mode of Delivery (Oxygen) Room air (07/05/19 2:57 PM) Room air (07/05/19 11:23 AM) Room air (07/05/19 9:35 AM) Blood pressure sites Arm, left (07/05/19 2:57 PM) Arm, left (07/05/19 11:23 AM) Arm, right (07/05/19 9:35 AM) Temperature Route Oral (07/05/19 11:23 AM) Oral (07/05/19 9:35 AM) Weight Obtained Via Standing scale (07/05/19 9:35 AM) Social History Social History Type Response Smoking Status Never smoker; Tobacc o user in household: No entered on: 03/07/16 Sex
--- OUTSIDE RECORDS SUMMARY | 2023-11-04 03:02 | XMS_ITS | Continuity of Care Document ---
Author Organization [facility] Address [address] [place] [address]- Care Team Providers Care Senior Nuclear Medicine Technologist Name Role Phone Laure Vazquez MD Primary Care Physician [phone] Encounter [facility] [place] Date(s): 02/11/20 - 02/18/20 [facility] [address] [place] [address]- [facility] Encounter Diagnosis Screen for STD (sexually transmitted disease)(Discharge Diagnosis) - 02/11/20 Attending Physician: Low Onofre MD Referring Physician: Laure Vazquez MD Allergies, Adverse Reactions, Alerts Substance Reaction Severity Status Latex Active Immunizations Given and Recorded Vaccine Date Status Refusal Reason tetanus/diphtheria/pertussis, acel(Tdap) 1 07/24/19 Given Measles/Mumps/Rubella Virus Vaccine 08/08/17 Recor ded Hepatitis B Vaccine (old term) 08/08/17 Recorded 1Result Comment: [facility]# [id number] Medications ProAir HFA 90 mcg/inh inhalation aerosol with adapter 2, puffs, Inhalation, Every 4 hours, PRN, # 1 each, Refills 0, Tot. Refills 0, Maintenance, 06/30/19 14:56:25 EST, Aerosol, Route to Pharmacy Electronically, [id number], [id number], 188, cm, 05/14/19 14:00:18 EDT, Height Start Date: 06/30/19 Stop Date: 07/30/19 Status: Ordered Problem List Condition Effective Dates Status Health Status Inform ant Hematuria(Confirmed) Active OCD (obsessive compulsive disorder)(Confirmed) Active Diagnosis Diagnosis Type Effective Dates Health Status Clinical Service Informant Screen for STD (sexually transmitted disease) Discharge Diagnosis 02/11/20 Vital Signs Most recent to oldest [Reference Range]: 1 Height 188 cm (02/11/20 10:27 AM) Oxygen Saturation [94-100 %] 98 % (02/11/20 10: AM) Pulse Rate [55-90 bpm] 88 bpm (02/11/20 10:27 AM) Blood Pressure [90-138/55-84 mm Hg] 132/ 85mm Hg (02/11/20 10:27 AM) Respiratory Rate [16-30 br/min] 19 br/mi n (02/11/20 10: AM) Temperature [96.8-100.4 DegF] 98.3 DegF (02/11/20 10:27 AM) Mode of Delivery (Oxygen) Room air (02/11/20 10:27 AM) Blood pressure sites Arm, left (02/11/20 10:27 AM) Temperature Route Temporal (02/11/20 10:27 AM) Social History Social History Type Response Smoking Status Never smoker; Tobacc o user in household: No entered on: 03/07/16 Sex
[2023-11-04 03:50] LABS: COVID-19 Test Negative (Negative); IDNOW Serial# 08D9AD1C
--- NOTE | 2023-11-04 08:45 | ED.GENADULT ---
HPI - General Adult General Chief complaint: General Medical Stated complaint: headache, shortness of breathe. exhausted Time Seen by Provider: 11/04/23 08:45 Source: patient Mode of arrival: ambulatory Limitations: no limitations History of Present Illness HPI narrative: 23 yo male presents to the ER for evaluation of headache and SOB. States that he woke gasping for breath last night. He looked at the clock and noticed that he was late for work. He took a minute and his breathing improved. Does have a history of asthma but denies any wheezing. He did not need to use his inhaler. He was panicking because he was late for work. He also reports a headache and ?exhaustion.? He denies sick contacts at home. No cough, fever, muscle aches, N/V/D, abdominal pain. MD complaint: SOB, headache, tired Onset (ago): hour(s) Location: head and chest Radiation: non-radiation Severity: moderate Pain Consistency: now resolved Relieving factors: rest Associated symptoms: denies other symptoms Treatments prior to arrival: none Related Data Allergies Allergy/AdvReac Type Severity Reaction Status Date / Time latex Allergy Rash Verified 11/04/23 02:48 Review of Systems Review of Systems: Yes all other systems are reviewed and are negative [facility] Social History Social History Advance Directives: No Advance Directives Information Provided: No Physical Exam ED Vital Signs: Vital Signs - 24 hr 11/04/23 02:45 Temperature 97.7 F Pulse Rate 60 Respiratory Rate 16 Blood Pressure 125/77 Pulse Oximetry 98 Oxygen Delivery Method Room Air BMI result Body Mass Index 24.8 Appearance: Alert. Oriented X3. No acute distress. Head: normocephalic, atraumatic. Eyes: Pupils equal, round and reactive to light. ENT: Pharynx normal. No tonsillar swelling or exudate. Neck: Normal inspection. Neck supple. CVS: Normal heart rate and rhythm. Pulses normal. Respiratory: No respiratory distress. Breath sounds normal. Abdomen: Soft and nontender. +BS x4 Skin: Skin warm and dry. Normal skin color. Normal skin turgor. No rashes. Extremities: No lower extremity edema. No joint swelling. Neuro/psych: Oriented X 3. No motor deficit. No sensory deficit. CN II-XII intact. Normal speech and cognition. Medical Decision Making Medical Decision Making MDM Narrative: 23 yo male presenting to the ER for evaluation of transient SOB, awakening gasping for air when he realized he was late for work. reports headache and being tired as well. no known sick contacts. VSS on arrival. exam is unremarkable, lungs clear. he is afraid of losing his job. he has no evidence of asthma exacerbation. he states his headache is mild. no neuro deficits. he admits he is mostly here because he needs a note for his work. he is medically stable to be discharged home. work note provided per request. Differential Diagnosis Differential Diagnoses: The differential diagnosis associated with the presentation includes acute asthma exacerbation, strep, covid, flu, rsv, other viral syndrome, bronchitis, pneumonia Lab Data MDM Lab Attestation statement: I reviewed the patient's lab results. Labs: Lab Results 11/04/23 Range/Units 02:54 COVID-19 (OFELIA) Negative (Negative) COVID-19 Clin Com See Note Tests considered The following testing was considered but not selected: cxr considered lab work up considered Prescription Management I considered prescription management with: Antibiotic Critical Care Time Critical Care Time Critical Care Time: No Discharge Plan Discharge Clinical Impression: SOB (shortness of breath) Headache Qualifiers: Headache type: unspecified Headache chronicity pattern: unspecified pattern Intractability: not intractable Qualified Code(s): R51.9 - Headache, unspecified Patient Disposition: Home, Self-Care Instructions: Acute Headache (DC), Shortness of Breath (ED) Additional Instructions: you tested negative for covid your vital signs and exam were normal recommend rest, plenty of oral hydration tylenol or motrin as needed for pain If you develop new or worsening symptoms call 911 or come back to the ER for further evaluation. Stand Alone Forms: Work/School Release Print Language: Emirati
[2023-11-04 09:20] VITALS: BP 146/95; PULSE 65; RESP 16; TEMP 36.9; O2SAT 100
== END 2023-11-04 09:22 | disposition home or self-care (01) ==
PROVIDERS: Emergency Provider Emergency Medicine; PCP Internal Medicine
DX: R51.9 Headache, unspecified (principal); R06.02 Shortness of breath; Z11.52 Encounter for screening for COVID-19
CPT/HCPCS: 87635; 99283; 99284